=== PATIENT | male | born 1970 | race Caucasian/White ===

== ENCOUNTER 2016-05-11 14:27 | Emergency (ER) | payer OTHER ==
[~2016-05-11] VITALS: Ht 182.9 cm; Wt 78.0 kg
[~2016-05-11 14:27] MED LIST: AMLO5TAB96 PO; ENAL20TA PO
[2016-05-11 14:34] VITALS: BP 122/77; PULSE 89; RESP 16; TEMP 98.3; O2SAT 99
[2016-05-11] MEDS ORDERED: ENAL20TA PO (14:55)
[2016-05-11] MEDS ORDERED: AMLO10TA2 PO (14:55)
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
--- NOTE | 2016-05-11 15:47 | RADHPO ---
EXAM DATE/TIME: 05/11/2016 15:17 [place] COMPARISON: No previous studies available for comparison. INDICATIONS : Possible dislocation of the 5th digit of the right hand. MEDICAL HISTORY : None. SURGICAL HISTORY : None. ENCOUNTER: Initial ACUITY: 4 - 6 days PAIN SCORE: 5/10 LOCATION: Right hand, 5th digit. FINDINGS: Three view examination of the right hand demonstrates no soft tissue swelling, dislocation, or fractu re. The carpal bones appear intact. The interphalangeal and metacarpophalangeal joints are intact. Bony mineralization is normal. CONCLUSION: Negative examination of the right hand. Misha Wetzel MD on May 11, 2016 at 15:45 Board Certified Radiologist. This report was verified electronically.
== END 2016-05-11 16:15 | disposition home or self-care (01) ==
LOC: PHEFT 14:27
DX: S63.616A Unspecified sprain of right little finger, initial encounter (principal); X50.1XXA Overexertion from prolonged static or awkward postures, initial encounter; Y93.89 Activity, other specified; I10 Essential (primary) hypertension; F12.90 Cannabis use, unspecified, uncomplicated
CPT/HCPCS: 73130; 99283